=== PATIENT | female | born 1945 | race Caucasian/White ===

== ENCOUNTER 2018-05-24 16:03 | Emergency (ER) | payer OTHER ==
--- NOTE | 2018-05-24 16:18 | EDPHY ---
H & P Time Seen by Provider: 05/24/18 16:18 HPI/ROS: HPI CHIEF COMPLAINT: Hypoglycemia. HISTORY OF PRESENT ILLNESS: This is a 72-year-old female visiting her family from [facility], she is an insulin-dependent diabetic, presents to the emergency room by EMS for hypoglycemia. She was sitting watching TV and felt fuzzy/tired. Was able to get a cup of orange juice down. 911 was called due to a very low blood sugar 26 per EMS. She arrives here to the emergency room in no acute distress. Patient was given D10 250 cc by EMS. Blood sugar after this came to 187. She arrives to the emergency room in no acute distress. Denies any complaints. Patient denies any recent illness. She does report that she ate breakfast this morning she had pancakes. But she took her normal insulin last night and this morning. She is unsure why this happened. Reports that she did not eat till 330 in the afternoon. Past Medical History: Insulin-dependent diabetes, hypertension, hyperlipidemia , thyroid disease Past Surgical History: No recent surgery Social History: Visiting from [facility]. Family History: Noncontributory ROS REVIEW OF SYSTEMS: 10 Systems were reviewed and negative with the exception of the elements mentioned in the history of present illness. Exam Constitutional nontoxic no acute distress, triage nursing summary reviewed, vital signs reviewed, awake/alert. Eyes normal conjunctivae and sclera, EOMI, PERRLA. HENT normal inspection, atraumatic, moist mucus membranes, no epistaxis, neck supple/ no meningismus, no raccoon eyes. Respiratory clear to auscultation bilaterally, normal breath sounds, no respiratory distress, no wheezing. Cardiovascular rate normal, regular rhythm, no murmur, no edema, distal pulses normal. Gastrointestinal soft, non-tender, no rebound, no guarding, normal bowel sounds, no distension, no pulsatile mass. Genitourinary no CVA tenderness. Musculoskeletal no midline vertebral tenderness, full range of motion, no calf swelling, no tenderness of extremities, no meningismus, good pulses, neurovascularly intact. Skin pink, warm, & dry, no rash, skin atraumatic. Neurologic awake, alert and oriented x 3, AAOx3, moves all 4 extremities equally, motor intact, sensory intact, CN II-XII intact, normal cerebellar, normal vision, normal speech. Psychiatric normal mood/affect. Heme/Lymph/Immune no lymphadenopathy. Differential Diagnosis: Includes but is not limited to in a particular order hypoglycemia, insulin overdose accidental, infection electrolyte disturbance Medical Decision Making: Plan for this patient IV establishment with blood draw , check basic labs, monitor blood sugar acute 30 min until stable. Re-evaluation: 2018: Patient re-evaluated this time resting comfortably no acute distress. Patient has had stable vital signs here in the emergency room Additionally the patient has had state blood sugars throughout her course in the emergency room without becoming hypoglycemic. She did eat a meal here. Blood pressures and stayed in the 100s. She denies any complaints. Her urinalysis has been reviewed and shows and infection. Urine culture was sent, 1 g Rocephin was given. I do not believe that her urinary tract infection is the cause of her hypoglycemia. After long discussion with her [id number] who is an emergency room physician Camden Fermín, spoke with him at length she believes that will her hypoglycemia a is due to the fact that when she comes out to visit them in [place] she does not stay on her regimen of eating regular meals and she continues her regular scheduled insulin and skips meals and then becomes hypoglycemic. She reports to me that she had pancakes this morning at 9:30 a.m. But did not eat anything further until she had a hypoglycemic event with a glass of orange juice around 330 and then ended up in the emergency room today. I will talk to her at length about keeping a food regimen eating appropriately while out here. Additionally when she returns back to [place] tomorrow I do recommend she follows up closely with her engraver. The patient is eager to be discharged from the emergency room. She denies any complaints. She is not become hypoglycemic here. I spoke with her daughter in-law who is willing to take her home and is comfortable this plan. 2056: Updated patient and at bedside about treatment plan care plan. They would like to go home. Discussed return precautions return emergency room if worsening symptoms includes not feeling well, vomiting, low blood sugar. Also educated discussed with the about what to do a blood sugar gets too low called 911. He is comfortable this and understands. Discharge blood sugar 148. Source: Patient Constitutional: Initial Vital Signs Heart Rate 69 05/24/18 16:09 Respiratory Rate 16 05/24/18 16:09 Blood Pressure 185/73 H 05/24/18 16:09 O2 Sat (%) 99 05/24/18 16:09 O2 Delivery Mode Room Air Allergies/Adverse Reactions: No Known Allergies Allergy (Unverified 05/24/18 16:21) Home Medications: Medication Instructions Recorded Centrum Chewables Adults Tab 05/24/18 Cephalexin [Keflex] 500 mg PO Q6H #28 cap 05/24/18 Dorzolamide HCl 05/24/18 Duloxetine HCl 05/24/18 Levemir 05/24/18 Levothyroxine 05/24/18 Lisinopril 05/24/18 Metformin HCl 05/24/18 Metoprolol Tartrate 05/24/18 Rosuvastatin Calcium 05/24/18 Travatan Z 05/24/18 VITAMIN E 05/24/18 Vitamin C 05/24/18 Vitamin D3 05/24/18 novoLOG 05/24/18 Medical Decision Making - Data Points Laboratory Results: Laboratory Results 05/24/18 16:30 05/24/18 16:30 05/24/18 05/24/18 05/24/18 20:58 20:04 18:50 WBC RBC Hgb Hct MCV MCH MCHC RDW Plt Count MPV Neut % (Auto) Lymph % (Auto) [place] % (Auto) Eos % (Auto) Baso % (Auto) Nucleat RBC Rel Count Absolute Neuts (auto) Absolute Lymphs (auto) Absolute Monos (auto) Absolute Eos (auto) Absolute Basos (auto) Absolute Nucleated RBC Immature Gran % Immature Gran # Sodium Potassium Chloride Carbon Dioxide Anion Gap BUN Creatinine Estimated GFR Glucose POC Glucose 148 mg/dL H mg/dL 128 mg/dL H mg/dL (70-100) (70-100) Calcium Urine Color YELLOW Urine Appearance CLEAR Urine pH 6.0 (5.0-7.5) Ur Specific [place] 1.015 (1.002-1.030) Urine Protein NEGATIVE (NEGATIVE) Urine Ketones NEGATIVE (NEGATIVE) Urine Blood NEGATIVE (NEGATIVE) Urine Nitrate NEGATIVE (NEGATIVE) Urine Bilirubin NEGATIVE (NEGATIVE) Urine Urobilinogen 2.0 EU H EU (0.2-1.0) Ur Leukocyte Esterase 1+ H (NEGATIVE) Urine RBC 1-3 /hpf /hpf (0-3) Urine WBC 25-50 /hpf H /hpf (0-3) Ur Epithelial Cells TRACE /lpf /lpf (NONE-1+) Urine Bacteria TRACE /hpf H /hpf (NONE SEEN) Urine Mucus TRACE /lpf /lpf (NONE-1+) Urine Glucose NEGATIVE (NEGATIVE) 05/24/18 05/24/18 05/24/18 18:49 18:15 17:46 WBC RBC Hgb Hct MCV MCH MCHC RDW Plt Count MPV Neut % (Auto) Lymph % (Auto) [place] % (Auto) Eos % (Auto) Baso % (Auto) Nucleat RBC Rel Count Absolute Neuts (auto) Absolute Lymphs (auto) Absolute Monos (auto) Absolute Eos (auto) Absolute Basos (auto) Absolute Nucleated RBC Immature Gran % Immature Gran # Sodium Potassium Chloride Carbon Dioxide Anion Gap BUN Creatinine Estimated GFR Glucose POC Glucose 110 mg/dL H mg/dL 89 mg/dL mg/dL 90 mg/dL mg/dL (70-100) (70-100) (70-100) Calcium Urine Color Urine Appearance Urine pH Ur Specific [place] Urine Protein Urine Ketones Urine Blood Urine Nitrate Urine Bilirubin Urine Urobilinogen Ur Leukocyte Esterase Urine RBC Urine WBC Ur Epithelial Cells Urine Bacteria Urine Mucus Urine Glucose 05/24/18 05/24/18 05/24/18 17:18 16:41 16:30 WBC RBC Hgb Hct MCV MCH MCHC RDW Plt Count MPV Neut % (Auto) Lymph % (Auto) [place] % (Auto) Eos % (Auto) Baso % (Auto) Nucleat RBC Rel Count Absolute Neuts (auto) Absolute Lymphs (auto) Absolute Monos (auto) Absolute Eos (auto) Absolute Basos (auto) Absolute Nucleated RBC Immature Gran % Immature Gran # Sodium 139 mEq/L mEq/L (135-145) Potassium 4.2 mEq/L mEq/L (3.5-5.2) Chloride 104 mEq/L mEq/L (97-110) Carbon Dioxide 25 mEq/l mEq/l (22-31) Anion Gap 10 mEq/L mEq/L (6-14) BUN 20 mg/dL mg/dL (7-23) Creatinine 0.9 mg/dL mg/dL (0.6-1.0) Estimated GFR > 60 Glucose 132 mg/dL H mg/dL (70-100) POC Glucose 106 mg/dL H mg/dL 105 mg/dL H mg/dL (70-100) (70-100) Calcium 9.8 mg/dL mg/dL (8.5-10.4) Urine Color Urine Appearance Urine pH Ur Specific [place] Urine Protein Urine Ketones Urine Blood Urine Nitrate Urine Bilirubin Urine Urobilinogen Ur Leukocyte Esterase Urine RBC Urine WBC Ur Epithelial Cells Urine Bacteria Urine Mucus Urine Glucose 05/24/18 16:30 WBC 7.03 10^3/uL 10^3/uL (3.80-9.50) RBC 4.39 10^6/uL 10^6/uL (4.18-5.33) Hgb 12.5 g/dL L g/dL (12.6-16.3) Hct 39.0 % % (38.0-47.0) MCV 88.8 fL fL (81.5-99.8) MCH 28.5 pg pg (27.9-34.1) MCHC 32.1 g/dL L g/dL (32.4-36.7) RDW 15.1 % % (11.5-15.2) Plt Count 231 10^3/uL 10^3/uL (150-400) MPV 11.3 fL fL (8.7-11.7) Neut % (Auto) 74.5 % H % (39.3-74.2) Lymph % (Auto) 17.6 % % (15.0-45.0) [place] % (Auto) 6.0 % % (4.5-13.0) Eos % (Auto) 0.9 % % (0.6-7.6) Baso % (Auto) 0.4 % % (0.3-1.7) Nucleat RBC Rel Count 0.0 % % (0.0-0.2) Absolute Neuts (auto) 5.24 10^3/uL 10^3/uL (1.70-6.50) Absolute Lymphs (auto) 1.24 10^3/uL 10^3/uL (1.00-3.00) Absolute Monos (auto) 0.42 10^3/uL 10^3/uL (0.30-0.80) Absolute Eos (auto) 0.06 10^3/uL 10^3/uL (0.03-0.40) Absolute Basos (auto) 0.03 10^3/uL 10^3/uL (0.02-0.10) Absolute Nucleated RBC 0.00 10^3/uL 10^3/uL (0-0.01) Immature Gran % 0.6 % % (0.0-1.1) Immature Gran # 0.04 10^3/uL 10^3/uL (0.00-0.10) Sodium Potassium Chloride Carbon Dioxide Anion Gap BUN Creatinine Estimated GFR Glucose POC Glucose Calcium Urine Color Urine Appearance Urine pH Ur Specific [place] Urine Protein Urine Ketones Urine Blood Urine Nitrate Urine Bilirubin Urine Urobilinogen Ur Leukocyte Esterase Urine RBC Urine WBC Ur Epithelial Cells Urine Bacteria Urine Mucus Urine Glucose Medications Given: Discontinued Medications Sodium Chloride (Ns) 1,000 mls @ 0 mls/hr IV EDNOW ONE; Wide Open PRN Reason: Protocol Stop: 05/24/18 16:26 Last Admin: 05/24/18 16:49 Dose: 1,000 mls Ceftriaxone Sodium/Dextrose (Rocephin 1 Gm (Premix)) 50 mls @ 100 mls/hr IV EDNOW ONE PRN Reason: Protocol Stop: 05/24/18 19:43 Last Admin: 05/24/18 19:23 Dose: 50 mls Point of Care Test Results: Chemistry 05/24/18 05/24/18 05/24/18 20:58 20:04 18:49 POC Glucose 148 mg/dL H mg/dL 128 mg/dL H mg/dL 110 mg/dL H mg/dL (70-100) (70-100) (70-100) 05/24/18 05/24/18 05/24/18 18:15 17:46 17:18 POC Glucose 89 mg/dL mg/dL 90 mg/dL mg/dL 106 mg/dL H mg/dL (70-100) (70-100) (70-100) 05/24/18 16:41 POC Glucose 105 mg/dL H mg/dL (70-100) Departure - Departure Disposition: Home, Routine, Self-Care Clinical Impression: Hypoglycemia Urinary tract infection Qualifiers: Urinary tract infection type: acute cystitis Hematuria presence: without hematuria Qualified Code(s): N30.00 - Acute cystitis without hematuria Condition: Good Instructions: Urinary Tract Infection in Women (ED), Hypoglycemia in a Person with Diabetes (ED) Additional Instructions: 1. Make sure you check her blood sugar this evening. 2. If you're feeling bad or your blood sugars low please immediately return emergency room. 3. Keep a close eye on her blood sugar over the next few days. 4. When you return to [place] follow-up with your engraver. 5. Take your Keflex antibiotics for you're urinary tract infection. Referrals: CAIN HUERTA [Other] - As per Instructions Prescriptions: Cephalexin [Keflex] 500 mg PO Q6H #28 cap
[2018-05-24] MEDS ORDERED: NS 1,000 ML IV ONE (16:25)
[2018-05-24 16:49] LABS: PLATELET COUNT 231 10^3/uL (150-400)
[2018-05-24 21:01] VITALS: BP 164/69
== END 2018-05-24 21:12 | disposition home or self-care (01) ==
DX: N30.00 Acute cystitis without hematuria (principal); E11.649 Type 2 diabetes mellitus with hypoglycemia without coma; E07.9 Disorder of thyroid, unspecified; Z79.4 Long term (current) use of insulin
CPT/HCPCS: 96361; 96365; 99284; J0696